=== PATIENT | male | born 1980 | race Caucasian/White ===

== ENCOUNTER 2017-07-13 01:40 | Emergency (ER) | payer SELFPAY ==
[~2017-07-13] VITALS: Ht 172.7 cm; Wt 81.7 kg
[~2017-07-13 01:40] MED LIST: SUCR1ORA2 PO
[2017-07-13] MEDS ORDERED: ONDA4TAB9 SL (04:36)
[2017-07-13 05:13] VITALS: BP 118/68
== END 2017-07-13 05:16 | disposition home or self-care (01) ==
LOC: ER 01:40
DX: S06.0X9A Concussion with loss of consciousness of unspecified duration, initial encounter (principal); S00.03XA Contusion of scalp, initial encounter; S00.83XA Contusion of other part of head, initial encounter; Z79.899 Other long term (current) drug therapy; Y08.89XA Assault by other specified means, initial encounter; Y93.89 Activity, other specified; Y92.89 Other specified places as the place of occurrence of the external cause; Y99.8 Other external cause status
CPT/HCPCS: 70450; 99284